=== PATIENT | male | born 1965 | race African-American/Black ===

== ENCOUNTER 2016-05-30 21:13 | Emergency (ER) | payer BC, MEDICAID ==
--- NOTE | 2016-05-30 21:18 | EDM.PDOC ---
ED HPI Trauma - General Chief Complaint: Lower Extremity Injury/Pain Stated Complaint: KNEE Time Seen by Provider: 05/30/16 21:25 Source: Reports: Patient History Limitations: Reports: No limitations - History of Present Illness INITIAL COMMENTS - FREE TEXT/NARRATIVE: c/o pain to right knee, denies injury, no previous episodes. Woke with discomfort. Ibuprofen 200mg at noon, did not help. Occurred When: this morning Severity: moderate Pain/Injury Location: Reports: lower extremity, right Associated Symptoms: Reports: no other symptoms Allergies/ADRs: Allergies No Known Allergies Allergy (Verified 05/30/16 21:30) Home Medications: Ambulatory Orders . [No Known Home Meds] 05/30/16 [Confirmed 05/30/16] Review of Systems - Review of Systems Review Of Systems: See Below Constitutional: Reports: no symptoms Mouth/Throat: Reports: no symptoms Respiratory: Reports: no symptoms Cardiovascular: Reports: no symptoms GI/Abdominal: Reports: No symptoms Musculoskeletal: Reports: joint pain (right knee) Skin: Reports: no symptoms Neurological: Reports: no symptoms Trauma Exam - Physical Exam Exam: See Below Exam Limited By: No limitations General Appearance: Reports: alert, mild distress Head: Reports: atraumatic, normocephalic Eyes: bilateral eye: EOMI Ears: Reports: normal external exam Nose: Reports: normal inspection Throat/Mouth: Reports: Normal inspection Neck: Reports: non-tender Respiratory Exam: Reports: no respiratory distress, lungs clear Cardiovascular: Reports: regular rate, rhythm Extremities: Reports: no evidence of injury, normal range of motion (guarding with flexion), bony-point tenderness (greater lateral), pain with movement. Denies: joint effusion, unable to bear weight Neurologic: Reports: no motor/sensory deficits Skin: Reports: Normal color, Warm/dry Course - Vital Signs Last Recorded V/S: Last Vital Signs Temp 97.2 F 05/30/16 23:47 Pulse 66 05/30/16 23:47 Resp 16 05/30/16 23:47 BP 131/80 05/30/16 23:47 Pulse Ox 98 05/30/16 23:47 - Orders/Labs/Meds Meds: Medications Discontinued Medications Generic Name Dose Route Start Last Admin Trade Name Freq PRN Reason Stop Dose Admin Ibuprofen 600 mg 05/30/16 22:58 05/30/16 23:09 Motrin PO 05/30/16 22:59 600 mg ONETIME ONE Administration - Radiology Interpretation Free Text/Narrative:: right knee negative - Re-Assessments/Exams Free Text/Narrative Re-Assessment/Exam: 05/30/16 23:42 . Expressed displeasure with ibuprofen for knee pain. Informed at present no indication for narcotic type medication results reviewed, offered crutches as part of discharge plan, declined. Departure - Departure Time of Disposition: 23:42 Disposition: Home, Self-Care 01 Condition: good Clinical Impression: Right knee pain Qualifiers: Chronicity: acute Qualified Code(s): M25.561 - Pain in right knee Instructions: Knee Pain Referrals: PCP,None [Primary Care Provider] - Forms: ED Department Discharge Additional Instructions: rest ice alternate tylenol 650mg with 600mg Ibuprofen every 4 hours as needed for discomfort clinic follow up if not improving on Friday
[2016-05-30] MEDS ORDERED: Ibuprofen 600 MG Tab PO ONE (22:58)
[2016-05-30 23:47] VITALS: BP 131/80
== END 2016-05-30 23:43 | disposition home or self-care (01) ==
LOC: DL.ED 21:13
DX: M25.561 Pain in right knee (principal)
CPT/HCPCS: 73562; 99283; A9270